=== PATIENT | female | born 1940 | race Caucasian/White ===

== ENCOUNTER → 2019-03-31 | Day surgery (SDC) | payer MEDICARE ==
--- NOTE | 2019-03-31 09:33 | MMO ---
STEREOTACTIC RIGHT BREAST BIOPSY: INDICATION: Suspicious calcification is within the right breast. COMPARISON: Right breast diagnostic mammographic evaluation from [facility] dated March 18, 2019. TECHNIQUE: Informed consent was obtained. Patient was placed prone on the stereotactic biopsy table. Preprocedur e mammographic images were obtained for guidance purposes. These suspicious clustered calcification right breast 12:00 position, mid to posterior depth, were identified. These corresponded to the suspi cious cluster calcifications seen on the diagnostic evaluation performed at [facility] dated March 18, 2019. The skin overlying this region was prepped and draped in the usual sterile fashion. Prefire images were obtained. Guidance coordinates were confirmed. The right breast skin was anesthetized utilizing buffered 1% lidocaine. A small incision was made at the biopsy site. The stereotactic breast needle was then guided through the skin. Additional prefire images were obtained to confirm needle tip positioning near the suspicious cluster of calcifications within the right breast. After confirmation, the stereotactic breast needle was fired into place. Post fire images were obtained. The needle trough was seen within the region of the suspicious cluster of calcifications within the right breast. Eight core samples were obtained from the 3:00 through 9:00 position in the most suspicious region of calcifications. Mammographic evaluation of the core samples demonstrated front desk representative calcifications within the core samples obtained. A small biopsy clip was then deployed in the 6, position and identified on postprocedure mammographic evaluations to be w ithin the biopsy site. The patient was held in compression until hemostasis was obtained. The site was then cleansed and bandaged. The patient was then escorted to the mammographic suite for follow-up post stereotactic breast biopsy mammogram. The patient tolerated the procedure without difficulty. IMPRESSION: BI-RADS Category 4-suspicious abnormality. Status post mammographic guided stereotactic right breast biopsy. Transcribed Date/Time: 03/31/2019 10:04 AM
--- NOTE | 2019-03-31 09:35 | MMO ---
DIAGNOSTIC MAMMOGRAM OF THE RIGHT BREAST: INDICATION: Status post right breast stereotactic breast biopsy. COMPARISON: Right breast diagnostic mammogram from [facility] dated March 18, 2019 FINDINGS: Since the comparison examination the patient has undergone stereotactic breast biopsy of the suspicio us cluster of calcifications seen within the right breast 12:00 position, mid to posterior depth. Residual calcifications from the suspicious cluster and no longer identified. There is gas and a smal l amount hemorrhage seen at the biopsy site in addition to a small biopsy clip. IMPRESSION: BI-RADS Category 4-suspicious abnormality. Status post stereotactic right breast biopsy. Awaiting pat hology results. Transcribed Date/Time: 03/31/2019 10:26 AM
--- NOTE | 2019-03-31 09:36 | MMO ---
RIGHT BREAST SURGICAL SPECIMEN MAMMOGRAM: INDICATION: Stereotactic breast biopsy of the right breast for suspicious cluster of calcifications within the ri ght breast. COMPARISON: Right breast diagnostic mammogram from [facility] dated March 18, 2019. FINDINGS: The submitted mammographic evaluation of the specimen demonstrates multiple small cores containing re presentative calcifications of the suspicious cluster seen within the right breast on the diagnostic mammographic evaluation from [facility] dated March 18, 2019. IMPRESSION: BI-RADS Category 4-suspicious abnormality. Status post stereotactic right breast biopsy. 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 Transcribed Date/Time: 03/31/2019 10:14 AM
== END ==
LOC: MAMMO 06:52
PROVIDERS: ATTEND Emergency Medicine
PROC: 0HBT3ZX Excision of Right Breast, Percutaneous Approach, Diagnostic (ICD-10-PCS; principal; 2019-03-31)
DX: D24.1 Benign neoplasm of right breast (principal); N60.21 Fibroadenosis of right breast; N60.31 Fibrosclerosis of right breast
CPT/HCPCS: 19081; 76098; 88305